=== PATIENT | male | born 1995 | race Caucasian/White ===

== ENCOUNTER 2021-01-25 20:27 | Emergency (ER) | payer MEDICAID ==
[~2021-01-25] VITALS: Ht 167.6 cm; Wt 79.7 kg
[2021-01-25 20:40] VITALS: BP 117/73
--- NOTE | 2021-01-25 20:54 | NUR ---
disc sander: pt from lobby to room 20
[2021-01-25] MEDS ORDERED: LIDOCAINE 1%, 2ML INFIL ONE (21:00)
[2021-01-25] MEDS ORDERED: BUPIVACAINE 0.25% INFIL ONE (21:00)
[2021-01-25] MEDS ORDERED: PLEASE ENTER ALLERGIES MC SCH (21:00)
[2021-01-25] MEDS ORDERED: BUPIVACAINE 0.25% ONE (21:02)
[2021-01-25] MEDS ORDERED: LIDOCAINE-MPF 1%, 2ML ONE (21:02)
--- NOTE | 2021-01-25 21:18 | NUR ---
pt reports coming into ed d/t Right Jaw pain since noon. Denies swelling, fevers, bleeding or drainage. pt denies any vision changes. sitting in room, nad, appears comfortable, placed on spo2/bp monitoring at this time. call light on lap, tm.
--- NOTE | 2021-01-25 21:48 | NUR ---
Patient given discharge instructions and they have confirmed that they understand the instructions. Patient ambulatory with steady gait. nad, denies additional questions or needs, no personal belongings left in room after dc.
== END 2021-01-25 21:51 | disposition home or self-care (01) ==
LOC: ED 21:50
DX: K02.9 Dental caries, unspecified (principal); K08.89 Other specified disorders of teeth and supporting structures; R51.9 Headache, unspecified; F17.210 Nicotine dependence, cigarettes, uncomplicated
CPT/HCPCS: 64400; 99284

== ENCOUNTER 2021-04-21 16:29 | Emergency (ER) | payer MEDICAID ==
[~2021-04-21] VITALS: Ht 167.6 cm; Wt 76.7 kg
--- NOTE | 2021-04-21 17:11 | NUR ---
PT TO ROOM AT THIS TIME
[2021-04-21] MEDS ORDERED: SODIUM CHLORIDE 0.9% 1,000ML IVBOLUS ONE (17:30)
[2021-04-21] MEDS ORDERED: MORPHINE SULFATE 4 MG/ML, 1ML IVPush PRN (17:30)
[2021-04-21] MEDS ORDERED: HYDROcodone/APAP 5/325 TABLET PO ONE (18:00)
--- NOTE | 2021-04-21 18:02 | NUR ---
Pt sleeping, respirations even and unlabored.
--- NOTE | 2021-04-21 19:03 | NUR ---
Report to DREW Lind, to assume full care.
[2021-04-21 19:08] VITALS: BP 133/89
--- NOTE | 2021-04-21 19:21 | NUR ---
PROXY CHARTING FOR ESTELITA RN: PT STATED MULTIPLE TIMES THAT HE DID NOT WANT TO FILE A POLICE REPORT.
[2021-04-21] MEDS ORDERED: HYDROcodone/APAP 5/325 TABLET ONE (19:25)
[2021-04-21] MEDS ORDERED: MORPHINE SULFATE 4 MG/ML, 1ML ONE (19:25)
--- NOTE | 2021-04-21 19:34 | NUR ---
WENT TO ROOM TO MEDICATE PT. PT NOT IN ROOM OR DEPARTMENT. PT WAS SEEN BY TECH LEAVING DEPARTMENT. NOTIFIED
[2021-04-21] MEDS ORDERED: BACITRACIN ZINC OINT 500U/GM, 0.9 GM ONE (21:14)
== END 2021-04-21 19:43 | disposition left against medical advice (07) ==
LOC: ED 18:03
DX: S02.32XA Fracture of orbital floor, left side, initial encounter for closed fracture (principal); S02.40DA Maxillary fracture, left side, initial encounter for closed fracture; F17.210 Nicotine dependence, cigarettes, uncomplicated; Y04.8XXA Assault by other bodily force, initial encounter; Y93.89 Activity, other specified; Y92.89 Other specified places as the place of occurrence of the external cause; Y99.8 Other external cause status
CPT/HCPCS: 70486; 99406